=== PATIENT | male | born 1940 | race Caucasian/White ===

== ENCOUNTER → 2016-06-17 | Outpatient (CLI) | payer MEDICARE, OTHER | LOC: LAB 13:51 | PROVIDERS: ATTEND Internal Medicine | DX: G43.809 Other migraine, not intractable, without status migrainosus (principal); I10 Essential (primary) hypertension | CPT/HCPCS: 36415; 82565; 84520 ==

== ENCOUNTER → 2016-06-19 | Outpatient (CLI) | payer MEDICARE, OTHER | LOC: RAD 06-17 13:45 | PROVIDERS: ATTEND Internal Medicine | DX: R41.3 Other amnesia (principal); G43.809 Other migraine, not intractable, without status migrainosus | CPT/HCPCS: 70140; 70553; A9579 ==

== ENCOUNTER → 2016-06-24 | Outpatient (CLI) | payer MEDICARE, OTHER ==
[2016-06-24 08:27] LABS: BASOPHILS % (AUTO) 1 % (0-2); EOSINOPHILS # (AUTO) 0.1 10^3uL; EOSINOPHILS % (AUTO) 1 % (0-4); LYMPHOCYTES # (AUTO) 1.1 X10^3; MEAN CORPUSCULAR HEMOGLOBIN 31.1 PG (26.0-34.0); MEAN CORPUSCULAR HGB CONC 34.6 g/dL (31.0-37.0); MEAN CORPUSCULAR VOLUME 90 FL (80-100); MEAN PLATELET VOLUME 10.4 FL (6.0-9.5); MONOCYTES # (AUTO) 0.5 X10^3; MONOCYTES % (AUTO) 14 % (3-11); NEUTROPHILS % (AUTO) 53 % (51-67); PLATELET COUNT 150 10^3uL (150-450)
[2016-06-24 08:59] LABS: ANION GAP 15.3 MEQ/L (3-15); CALCULATED IONIZED CALCIUM 4.2 mg/dL (3.8-4.6); TOTAL PROTEIN 6.7 g/dL (6.4-8.5)
[2016-06-24 09:19] LABS: ERYTHROCYTE SEDIMENTATION RT* 17 mm/hr (0-19)
== END ==
LOC: LAB 08:14
PROVIDERS: ATTEND Internal Medicine
DX: Z00.00 Encounter for general adult medical examination without abnormal findings (principal); I10 Essential (primary) hypertension; E78.4 Other hyperlipidemia; R73.09 Other abnormal glucose; Z12.5 Encounter for screening for malignant neoplasm of prostate; F41.8 Other specified anxiety disorders; R41.3 Other amnesia; G47.33 Obstructive sleep apnea (adult) (pediatric); G43.809 Other migraine, not intractable, without status migrainosus
CPT/HCPCS: 36415; 80053; 80061; 82607; 83036; 84443; 85025; 85652; G0103; 84153